=== PATIENT | female | born 2000 | race American Indian/Alaskan Native ===

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

== ENCOUNTER 2022-08-08 13:55 | Outpatient (CLI) | payer OTHER ==
--- NOTE | 2022-08-08 15:26 | Ultrasound Report ---
ULTRASOUND BREAST RIGHT LIMITED, 08/08/2022 CLINICAL INFORMATION / INDICATION: N60.01. Patient presents for evaluation of an area of palpable con cern in the right breast. TECHNIQUE: Targeted ultrasound evaluation was performed of the area of interest. COMPARISON: Prior right breast ultrasound 09/24/2018 FINDINGS: Targeted ultrasound of the area palpable concern in the right breast 12:00 position located 11 cm fro m nipple reveals an oval circumscribed hypoechoic mass, measuring up to 2.4 x 0.9 x 2.7 cm. The mass is parallel. Foci of internal vascularity are demonstrated. Of note, patient had a similar-appearing mass in the 5:00 right breast on prior study from 2018 which has been previously biopsied with benign results. IMPRESSION: 1. An oval circumscribed hypoechoic mass corresponds with the site of palpable concern in the 12:00 p osition of the right breast. Given the appearance of the mass and the fact that the patient has had a similar mass in the 5:00 right breast previously biopsied with benign results, this is considered pr obably benign. Recommend right breast ultrasound in 6 months to ensure stability. Follow up recommendation: Short term follow up in 6 months. BI-RADS Category 3: PROBABLY BENIGN. Followup in 6 months. A normal or "negative" report should not preclude biopsy or follow-up of a clinically suspicious find ing. Signer Name: Cristine Torres MD Signed: 08/08/2022 3:22 PM Workstation Name: [email or web address]
== END 2022-08-08 13:56 | disposition home or self-care (01) ==
LOC: US 13:55
PROVIDERS: ATTEND Advanced Practice Midwife
DX: N63.12 Unspecified lump in the right breast, upper inner quadrant (principal); N60.01 Solitary cyst of right breast